=== PATIENT | male | born 1985 | race African-American/Black ===

== ENCOUNTER 2021-03-08 12:28 | Emergency (ER) | payer OTHER ==
[2021-03-08 12:32] VITALS: BP 146/85; PULSE 70; RESP 16; TEMP 98
--- NOTE | 2021-03-08 13:02 | ED ---
General Adult HPI - General Chief complaint: Abdominal Pain Stated complaint: Hernia Time Seen by Provider: 03/08/21 12:42 Source: patient Mode of arrival: ambulatory Limitations: no limitations - History of Present Illness Initial comments: Dictation was produced using [employer] dictation software. please excuse any grammatical, word or spelling errors. Chief Complaint: 35-year-old male presents with abdominal bulge History of Present Illness: 35-year-old male who presents to the emergency department for concerns of possible hernia. He was working out last week when he was doing abdomen crutches. He felt a pop in his abdomen no supposed. Patient states his symptoms have been slowly getting worse. He has been having strains GI symptoms. States that he does have pain with Valsalva and coughing. States that the bulge has been slowly getting bigger. He states that he does not go back in. The ROS documented in this emergency department record has been reviewed and confirmed by me. Those systems with pertinent positive or negative responses have been documented in the HPI. All other systems are other negative and/or noncontributory. PHYSICAL EXAM: General Impression: Alert and oriented x3, not in acute distress HEENT: Normocephalic atraumatic, extra-ocular movements intact, pupils equal and reactive to light bilaterally, mucous membranes moist. Cardiovascular: Heart regular rate and rhythm Chest: Able to complete full sentences, no retractions, no tachypnea Abdomen: abdomen soft, mild tenderness to palpation around the periumbilical region, there is a umbilical hernia that is nonreducible, non-distended, no organomegaly Musculoskeletal: Pulses present and equal in all extremities, no peripheral edema Motor: no focal deficits noted Neurological: CN II-XII grossly intact, no focal motor or sensory deficits noted Skin: Intact with no visualized rashes Psych: Normal affect and mood ED course: 35-year-old male presents to the emergency department for clinical presentation consistent with incarcerated umbilical hernia. Vital signs upon arrival are within acceptable limits. [place]ick is unremarkable. Computed tomography scan of the abdomen and pelvis shows bilateral inguinal umbilical hernia no evidence of inflammatory change. There is bilateral inguinal hernias. Inguinal hernias containing fat. Umbilical hernia contains fat and small bowel obstruction. There is some evidence of colitis.Case discussed with Dr. Segovia who will see patient in the office tomorrow. Findings were discussed with patient isn't advised to follow-up with the general surgeon. Return parameters discussed. Patient is signs that he should seek medical attention with any worsening symptoms or worsening nausea vomiting or abdominal pain. - Related Data Home Medications Medication Instructions Recorded Confirmed No Known Home Medications 03/08/21 03/08/21 Allergies Allergy/AdvReac Type Severity Reaction Status Date / Time No Known Allergies Allergy Verified 03/08/21 14:01 Review of Systems ROS Statement: Those systems with pertinent positive or pertinent negative responses have been documented in the HPI. ROS Other: All systems not noted in ROS Statement are negative. Past Medical History Past Medical History: No Reported History History of Any Multi-Drug Resistant Organisms: None Reported Past Surgical History: No Surgical Hx Reported Past Psychological History: No Psychological Hx Reported Smoking Status: Current every day smoker Past Alcohol Use History: Occasional Past Drug Use History: Marijuana General Exam Limitations: no limitations Course Vital Signs 03/08/21 12:30 Temperature 98.0 F Pulse Rate 70 Respiratory 16 Rate Blood Pressure 146/85 O2 Sat by Pulse 99 Oximetry Medical Decision Making - Lab Data Result diagrams: 03/08/21 13:18 Lab Results 03/08/21 Range/Units 13:18 Sodium 139 (137-145) mmol/L Potassium 4.5 (3.5-5.1) mmol/L Chloride 107 (98-107) mmol/L Carbon Dioxide 27 (22-30) mmol/L Anion Gap 5 mmol/L BUN 12 (9-20) mg/dL Creatinine 1.09 (0.66-1.25) mg/dL Est GFR (CKD-EPI)AfAm >90 (>60 ml/min/1.73 sqM) Est GFR (CKD-EPI)NonAf 88 (>60 ml/min/1.73 sqM) Glucose 95 (74-99) mg/dL Calcium 9.8 (8.4-10.2) mg/dL Disposition Clinical Impression: Abdominal hernia Disposition: HOME SELF-CARE Is patient prescribed a controlled substance at d/c from ED?: No Referrals: Leticia Barros MD [STAFF PHYSICIAN] - 03/09/21
[2021-03-08 13:40] LABS: African American GFR (CKD) >90 (>60 ml/min/1.73 sqM); Anion Gap 5 mmol/L; Blood Urea Nitrogen 12 mg/dL (9-20); Calcium 9.8 mg/dL (8.4-10.2); Carbon Dioxide 27 mmol/L (22-30); Chloride 107 mmol/L (98-107); Glucose 95 mg/dL (74-99); Non-African American GFR(CKD) 88 (>60 ml/min/1.73 sqM); Potassium 4.5 mmol/L (3.5-5.1); Sodium 139 mmol/L (137-145)
--- NOTE | 2021-03-08 13:53 | CT ---
EXAMINATION TYPE: CT abdomen pelvis w con DATE OF EXAM: 03/08/2021 COMPARISON: None HISTORY: incarcerated hernia CT DLP: 2116.6 mGycm Automated exposure control for dose reduction was used. TECHNIQUE: Helical acquisition of images from the lung bases through the pelvis have been completed. CONTRAST: Performed without Oral Contrast and with IV Contrast, patient injected with 100ml mL of Isovue 300. FINDINGS: Right inguinal hernia is present, left inguinal hernia appears somewhat smaller, both herni as contain fat. Umbilical hernia contains fat and a small LUNG BASES: No significant abnormality is appreciated. AORTA: No significant abnormality is appreciated. LIVER/GB: No significant abnormality is appreciated. PANCREAS: No significant abnormality is seen. SPLEEN: No significant abnormality is seen. ADRENALS: No significant abnormality is seen. KIDNEYS: No significant abnormality is seen. REPRODUCTIVE ORGANS: No significant abnormality is seen BOWEL: Questionable descending colon wall thickening, axial image #30, no evident bowel obstruction or inflammatory change, the appendix is normal. FREE AIR: No Free Air visible. ASCITES: None visible. PELVIC ADENOPATHY: None visualized. RETROPERITONEAL ADENOPATHY: No Retroperitoneal Adenopathy visible. URINARY BLADDER: No significant abnormality is seen. OSSEOUS STRUCTURES: No significant abnormality is seen. IMPRESSION: BILATERAL INGUINAL, UMBILICAL HERNIAS ARE PRESENT. NO EVIDENT INFLAMMATORY CHANGE. CORRELATE TO EXCLU DE COLITIS, FINDINGS COULD BE DUE TO LACK OF DISTENTION.
== END 2021-03-08 15:02 | disposition home or self-care (01) ==
LOC: EC 12:28
DX: K42.9 Umbilical hernia without obstruction or gangrene (principal); K40.20 Bilateral inguinal hernia, without obstruction or gangrene, not specified as recurrent; F17.200 Nicotine dependence, unspecified, uncomplicated; F12.90 Cannabis use, unspecified, uncomplicated
CPT/HCPCS: 36415; 80048; 74177; 99284; Q9967

== ENCOUNTER 2022-03-29 11:46 | Emergency (ER) | payer OTHER ==
[2022-03-29 12:20] VITALS: BP 145/95; PULSE 98; RESP 20; TEMP 98.4
--- NOTE | 2022-03-29 12:33 | ED ---
General Adult HPI - General Chief complaint: ENT Stated complaint: Throat Pain Time Seen by Provider: 03/29/22 12:15 Source: patient, RN notes reviewed, old records reviewed Mode of arrival: ambulatory Limitations: no limitations - History of Present Illness Initial comments: This is a 37-year-old male who presents emergency Department complaining of a sore throat 3 days. Patient states it hurts all day it does seem a little worse at night. Patient does not believe he has had a fever. Patient does state he had the COVID vaccine. Patient denies any difficulty breathing or shortness of breath or chest pain. Patient denies abdominal pain patient denies any nausea or vomiting. - Related Data Previous Rx's Medication Instructions Recorded Amoxicillin 500 mg PO Q8H #30 capsule 03/29/22 predniSONE [Deltasone] 40 mg PO DAILY #8 tab 03/29/22 Allergies Allergy/AdvReac Type Severity Reaction Status Date / Time hydrocodone Allergy Hallucinati Verified 03/29/22 12:20 ons Review of Systems ROS Statement: Those systems with pertinent positive or pertinent negative responses have been documented in the HPI. ROS Other: All systems not noted in ROS Statement are negative. Past Medical History Past Medical History: No Reported History History of Any Multi-Drug Resistant Organisms: None Reported Past Surgical History: No Surgical Hx Reported Past Psychological History: No Psychological Hx Reported Smoking Status: Current every day smoker Past Alcohol Use History: Occasional Past Drug Use History: Marijuana General Exam - General Exam Comments Initial Comments: GENERAL Patient is well-developed and well-nourished. Patient is in mild distress. EYES Patient's pupils are equal and round. Extraocular motion is intact ENT Oropharynx is very erythematous. Patient also has cervical lymphadenopathy SKIN Unremarkable NEURO The patient is alert and oriented 3 PYSCH Patient has normal interpersonal interactions. MUSCULOSKELETAL Patient was all 4 extremities. Limitations: no limitations Course Vital Signs 03/29/22 12:15 Temperature 98.4 F Pulse Rate 98 Respiratory 20 Rate Blood Pressure 145/95 O2 Sat by Pulse 95 Oximetry Disposition Clinical Impression: Strep pharyngitis Disposition: HOME SELF-CARE Condition: Good Instructions (If sedation given, give patient instructions): Strep Throat (ED) Prescriptions: Amoxicillin 500 mg PO Q8H #30 capsule predniSONE [Deltasone] 40 mg PO DAILY #8 tab Is patient prescribed a controlled substance at d/c from ED?: No Referrals: Scar Baez MD [Primary Care Provider] - 1-2 days Time of Disposition: 12:32
== END 2022-03-29 13:07 | disposition home or self-care (01) ==
LOC: EC 11:46
DX: J02.0 Streptococcal pharyngitis (principal); F17.200 Nicotine dependence, unspecified, uncomplicated; F12.90 Cannabis use, unspecified, uncomplicated
CPT/HCPCS: 87081; 87430; 99283